=== PATIENT | male | born 1970 | race Caucasian/White ===

== ENCOUNTER 2021-12-18 13:45 | Outpatient (CLI) | payer OTHER, SELFPAY ==
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
--- NOTE | ~2021-12-18 | XR_ITS ---
EXAMINATION: XR shoulder RT min 2V DATE: 12/18/2021 14:29 INDICATION: Right shoulder pain. TECHNIQUE: 4 views of right shoulder were obtained. COMPARISON: None. FINDINGS: Bone alignment is normal. No fracture. There is mild osteoarthritis of glenohumeral joint a nd moderate osteoarthritis of acromioclavicular joint. IMPRESSION: 1. Polyarticular osteoarthritis. Reviewed, dictated and finalized at location B.
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
--- NOTE | ~2021-12-18 | XR_ITS ---
EXAMINATION: XR shoulder LT min 2V DATE: 12/18/2021 14:26 INDICATION: Left shoulder pain. TECHNIQUE: 4 views of left shoulder were obtained. COMPARISON: None. FINDINGS: Bone alignment is normal. No fracture. The glenohumeral joint is normal. There is moderate acromioclavicular joint osteoarthritis. IMPRESSION: 1. Moderate left acromioclavicular joint osteoarthritis. Reviewed, dictated and finalized at location B.
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
== END 2021-12-18 13:46 | disposition home or self-care (01) ==
PROVIDERS: PCP Family Medicine; Visit Provider Nurse Practitioner Family
DX: M19.012 Primary osteoarthritis, left shoulder (principal); M19.011 Primary osteoarthritis, right shoulder; M54.50 Low back pain, unspecified; H53.9 Unspecified visual disturbance; H93.19 Tinnitus, unspecified ear
CPT/HCPCS: 70150; 70551; 71046; 71110; 72100; 73030